=== PATIENT | male | born 1995 | race African-American/Black ===

== ENCOUNTER 2024-09-29 17:44 | Emergency (ER) | payer BC, SELFPAY ==
[2024-09-29 17:47] VITALS: BP 130/83; PULSE 70; RESP 18; TEMP 36.6; O2SAT 100
--- NOTE | 2024-09-29 19:56 | PC.NURSE ---
called x 2 no answer
== END 2024-09-29 20:05 | disposition left against medical advice (07) ==
LOC: ANHED 20:04
PROVIDERS: PCP Family Medicine
DX: R20.0 Anesthesia of skin (principal)
CPT/HCPCS: 99199

== ENCOUNTER 2024-10-01 08:08 | Outpatient (CLI) | payer BC, SELFPAY ==
--- NOTE | 2024-10-01 08:22 | ECG_ITS ---
Test Date: 2024-10-01 08:33:38 Measurements Intervals [place] Rate: 60 P: 55 [place]: 169 QRS: 44 QRSD: 87 T: 12 QT: 386 QTc: 386 Interpretive Statements SINUS RHYTHM BORDERLINE ST-T WAVE ABNORMALITY- INFERIOR LEADS BASELINE ARTIFACT- II, III, AVF BORDERLINE ECG No previous ECG available for comparison Electronically Signed On 10-01-2024 08:35:53 CDT by Luis Angel Edward D.O.
== END 2024-10-01 08:09 | disposition home or self-care (01) ==
PROVIDERS: PCP Family Medicine; Visit Provider Physician Assistant Medical
DX: R07.9 Chest pain, unspecified (principal)
CPT/HCPCS: 93005

== ENCOUNTER 2024-10-03 22:16 | Emergency (ER) | payer BC, SELFPAY ==
--- NOTE | ~2024-10-03 | XR_ITS ---
Clinical Indication: Weakness, chest pain PA and lateral views of the chest: Comparison: None Findings: The lungs are clear, without evidence of focal consolidation or pleural effusion. Cardiome diastinal silhouette is within normal limits. Bones and soft tissues are unremarkable. Impression: Normal chest. Reviewed, dictated and finalized at [facility]. T INTERPRETER Impression: Normal chest.
--- NOTE | ~2024-10-03 | CT_ITS ---
Noncontrast CT scan of the cervical spine Technique: Multiple contiguous axial [address] images of the cervical spine were obtained and rec onstructed in 2D sagittal and coronal planes on the acquisition scanner. Dose reduction technique was used on this scan by utilizing automated exposure control, adjustment of the mA and/or kV according to patient size. The dose-length product (DLP) was 415.75 mGy-cm. Clinical History: Left upper extremity paresthesia Findings: No fractures or dislocations. Unremarkable visualized bony structures. The intervertebral disc spaces are preserved. No prevertebral soft tissue swelling. Impression: No fracture or subluxation of the cervical spine. No significant abnormality seen. Reviewed, dictated and finalized at location . MENTATION ANALYST Impression: No fracture or subluxation of the cervical spine. No significant abnormality se en.
--- NOTE | ~2024-10-03 | CT_ITS ---
Non-contrast Head CT History: Left upper axillary paresthesia Technique: Axial non-contrast imaging of the brain was performed. Dose reduction technique was used on this scan by utilizing automated exposure control and iterative reconstruction technique. The dose -length product (DLP) was 681.00 mGy-cm. Findings: There is no evidence of intracranial hemorrhage, mass lesion, or acute infarct. Brain par enchyma appears normal. The ventricles and subarachnoid spaces are normal in size. The calvarium ap pears normal. The visualized paranasal sinuses and mastoid air cells are clear. Impression: No significant abnormality seen. Reviewed, dictated and finalized at location . PROCESSOR Impression: No significant abnormality seen.
[2024-10-03 22:18] VITALS: BP 154/90; PULSE 95; RESP 20; TEMP 36; O2SAT 99
--- NOTE | 2024-10-03 22:22 | ECG_ITS ---
Test Date: 2024-10-03 22:25:16 Measurements Intervals [place] Rate: 84 P: 50 [place]: 152 QRS: 22 QRSD: 96 T: 2 QT: 338 QTc: 400 Interpretive Statements SINUS RHYTHM POSSIBLE LEFT ATRIAL ENLARGEMENT NONSPECIFIC ST-T WAVE ABNORMALITY- INFERIOR LEADS BASELINE ARTIFACT- I, III, AVL, V6 BORDERLINE ECG Compared to ECG 10/01/2024 08:33:38 NO SIGNIFICANT CHANGE Electronically Signed On 10-04-2024 05:50:37 WHIZZER HAND by Luis Angel Edward D.O.
[2024-10-03 23:04] LABS: Basophils Percent Auto 0.4 % (0.2-1.2); Eosinophils Absolute Auto 0.2 K/mm3 (0-0.3); Eosinophils Percent Auto 4.8 % (0-4.4); Hematocrit 38.4 % (42.0-52.0); Hemoglobin 13.3 g/dL (14.0-18.0); Immature Granulocyte Absolute 0.01 K/mm3 (0.00-0.031); Immature Granulocyte Percent A 0.2 % (0-0.5); Lymphocytes Absolute Auto 2.63 K/mm3 (0.9-3.2); Lymphocytes Percent Auto 52.8 % (18.3-44.2); Mean Corpuscular HGB Conc 34.6 g/dl (32-36); Mean Corpuscular Hemoglobin 29.8 pg (26-34); Mean Corpuscular Volume 85.9 fl (80-100); Mean Platelet Volume 10.7 fl (7.4-10.4); Monocytes Absolute Auto 0.3 K/mm3 (0.1-0.6); Monocytes Percent Auto 6.8 % (2.6-8.5); Neutrophils Absolute Auto 1.7 K/mm3 (1.3-6.7); Platelet Count Result 164 k/mm3 (150-375); Red Blood Count 4.47 M/mm3 (4.6-6.20); Red Cell Distribution Width 12.4 % (11.5-14.5)
[2024-10-03 23:16] LABS: Alanine Aminotransferase 29 U/L (6-50); Albumin Level 4.2 g/dL (3.5-5.1); Alkaline Phosphatase 47 U/L (38-126); Anion Gap 11 mmol/L (4-12); Aspartate Amino Transferase 33 U/L (17-59); Bilirubin,Total 0.4 mg/dL (0.2-1.3); Blood Urea Nitrogen 18 mg/dL (9-20); Carbon Dioxide 25 mmol/L (22-30); Chloride 103 mmol/L (98-107); Estimated CRCL calculation 139 ml/min; Estimated Glomerular Filt Rate > 60; Glucose 117 mg/dL (65-110); Lipase 140 U/L (23-300); Potassium 3.6 mmol/L (3.4-5.0); Prothrombin Time 13.3 Seconds (11.1-14.7); Sodium 139 mmol/L (137-145)
[2024-10-03 23:17] LABS: Partial Thromboplastin Time 26.8 Seconds (22.3-36.8)
[2024-10-03 23:28] LABS: Troponin I < 0.012 ng/mL (0.000-0.034)
[2024-10-04 01:54] VITALS: PULSE 77; O2SAT 100
[2024-10-04 01:55] VITALS: BP 143/85; PULSE 74; RESP 18; O2SAT 100
--- NOTE | 2024-10-04 02:30 | ECG_ITS ---
Test Date: 2024-10-04 02:43:12 Measurements Intervals [place] Rate: 61 P: 58 [place]: 169 QRS: 39 QRSD: 86 T: 25 QT: 391 QTc: 394 Interpretive Statements SINUS RHYTHM WITH SINUS ARRHYTHMIA BASELINE WANDER- V4-V6 NORMAL ECG Compared to ECG 10/03/2024 22:25:16 No significant changes Electronically Signed On 10-04-2024 05:55:50 GROUNDSKEEPING YARDMAN by Luis Angel Edward D.O.
--- NOTE | 2024-10-04 03:12 | ED.GENADULT ---
HPI - General Adult General Chief complaint: Weakness Stated complaint: Weakness, left arm numbness 09/29/24 Time Seen by Provider: 10/04/24 01:51 History of Present Illness HPI narrative: patient is a 29-year-old gentleman who presents emergency department with chief complaint of left shoulder and arm numbness. The patient reports that he has been having some discomfort in his left shoulder area also reports that he has had numbness in his left arm the patient states that it has been intermittent been ongoing since Friday. The patient reports that it is worse when he puts his arm in specific positions reports that he has no decreased credit processor strength denies trauma Related Data Home Medications Medication Instructions Recorded Confirmed No Home Medications 09/11/22 09/17/24 Allergies Allergy/AdvReac Type Severity Reaction Status Date / Time No Known Allergies Allergy Verified 09/17/24 11:04 Review of Systems Review of Systems: A 10 system review of systems was completed on the patient and is negative except for what is stated in the HPI. Nursing and ancillary documentation was reviewed. [facility] Past Medical History Medical History Hypertension Surgical History Surgical History Hx of wisdom tooth extraction Family History Family History Grandparent Asthma Diabetes mellitus Hypertension Cerebrovascular accident Breast cancer Other Asthma Other Asthma Mother Breast cancer Migraine Father Hypertension CHF (congestive heart failure) Social History Social History Smoking status: Never smoker Second hand tobacco smoke exposure: No Alcohol intake: current Drinks per week: 2 Substance use: never Substance use type: does not use Lack of Transportation: No Lack of Food: Never True Current Housing: I Have Housing Concerned About Future Housing: No Difficulty Paying Gas/Electric Bills: No Difficulty Paying for Meds: No Currently Unemployed: No Education: Bachelor's Degree Difficulty w/ Childcare or Family Care: No Gender identity (if verbalized by the patient): Male Sexual Orientation (if Verbalized by the Patient): Straight or Heterosexual Spiritual care concerns: No Agree to blood products: Yes Exam Narrative: GENERAL: Well-appearing, well-nourished, and in no acute distress. HEAD: Normocephalic, atraumatic. EYES: PERRLA and EOMI. ENT: Nares clear, no rhinorrhea or epistaxis. Mucous membranes moist. NECK: Supple. tenderness to palpation paraspinous muscles left side of the neck CHEST: Clear to auscultation. No respiratory distress. HEART: Regular rate and rhythm. No murmur heard. Normal peripheral pulses. ABDOMEN: Soft, nontender, nondistended, normal active bowel sounds. EXTREMITIES: Normal range of motion. No edema. SKIN: Warm, dry, no rash. NEURO: No focal deficits. Alert and oriented x3. PSYCH: Normal mood and affect. Course Vital Signs Vital signs: Vital Signs Temperature 36.0 C L 10/03/24 22:18 Pulse Rate 95 10/03/24 22:18 Respiratory Rate 20 10/03/24 22:18 Blood Pressure 154/90 H 10/03/24 22:18 Pulse Oximetry 99 10/03/24 22:18 Oxygen Delivery Room Air 10/03/24 22:18 Temperature 36.0 C L 10/03/24 22:18 Pulse Rate 74 10/04/24 01:55 Respiratory Rate 18 10/04/24 01:55 Blood Pressure 143/85 H 10/04/24 01:55 Pulse Oximetry 100 10/04/24 01:55 Oxygen Delivery Room Air 10/04/24 01:54 Medical Decision Making MDM Narrative Medical decision making narrative: differential diagnosis includes shoulder strain, cervical radiculopathy, ACS, atypical chest pain EKG showed no acute ischemic changes initial and repeat troponin were negative CT head showed no evidence of acute abnormality CT cervical spine showed no evidence of acute abnormality Vital Signs Vital Signs: Vital Signs Temperature 36.0 C L 10/03/24 22:18 Pulse Rate 95 10/03/24 22:18 Respiratory Rate 20 10/03/24 22:18 Blood Pressure 154/90 H 10/03/24 22:18 Pulse Oximetry 99 10/03/24 22:18 Oxygen Delivery Room Air 10/03/24 22:18 Temperature 36.0 C L 10/03/24 22:18 Pulse Rate 74 10/04/24 01:55 Respiratory Rate 18 10/04/24 01:55 Blood Pressure 143/85 H 10/04/24 01:55 Pulse Oximetry 100 10/04/24 01:55 Oxygen Delivery Room Air 10/04/24 01:54 Lab Data 10/03/24 22:57 10/03/24 22:57 Labs: Lab Results 10/03/24 10/04/24 Range/Units 22:57 02:47 WBC 5.0 (4.5-10.0) K/mm3 RBC 4.47 L (4.6-6.20) M/mm3 Hgb 13.3 L (14.0-18.0) g/dL Hct 38.4 L (42.0-52.0) % MCV 85.9 (80-100) fl MCH 29.8 (26-34) pg MCHC 34.6 (32-36) g/dl RDW 12.4 (11.5-14.5) % Plt Count 164 (150-375) k/mm3 MPV 10.7 H (7.4-10.4) fl Immature Gran % (Auto) 0.2 (0-0.5) % Neut % (Auto) 35.0 L (45.5-73.1) % Lymph % (Auto) 52.8 H (18.3-44.2) % [place] % (Auto) 6.8 (2.6-8.5) % Eos % (Auto) 4.8 H (0-4.4) % Baso % (Auto) 0.4 (0.2-1.2) % Lymph # (Auto) 2.63 (0.9-3.2) K/mm3 [place] # (Auto) 0.3 (0.1-0.6) K/mm3 Eos # (Auto) 0.2 (0-0.3) K/mm3 Baso # (Auto) 0.0 (0.0-0.1) K/mm3 Abs Immat Gran (auto) 0.01 (0.00-0.031) K/mm3 Absolute Neuts (auto) 1.7 (1.3-6.7) K/mm3 Absolute Nucleated RBC 0.000 (0.0-0.012) K/mm3 Nucleated RBC % 0.0 (0.0-0.2) % PT 13.3 (11.1-14.7) Seconds INR 1.0 APTT 26.8 (22.3-36.8) Seconds Sodium 139 (137-145) mmol/L Potassium 3.6 (3.4-5.0) mmol/L Chloride 103 (98-107) mmol/L Carbon Dioxide 25 (22-30) mmol/L Anion Gap 11 (4-12) mmol/L BUN 18 (9-20) mg/dL Creatinine 0.90 (0.7-1.3) mg/dL Estim Creat Clear Calc 139 ml/min Estimated GFR > 60 (59 - ) Glucose 117 H (65-110) mg/dL Calcium 9.0 (8.4-10.2) mg/dL Total Bilirubin 0.4 (0.2-1.3) mg/dL AST 33 (17-59) U/L ALT 29 (6-50) U/L Alkaline Phosphatase 47 (38-126) U/L Troponin I < 0.012 < 0.012 (0.000-0.034) ng/mL Total Protein 8.0 (6.3-8.2) g/dL Albumin 4.2 (3.5-5.1) g/dL Lipase 140 (23-300) U/L Discharge Plan Discharge Clinical Impression: Acute pain of left shoulder, Atypical chest pain Patient Disposition: Home, Self-Care Condition: Stable Instructions: Antibiotic Form, Chest Pain (ED), Shoulder Pain (ED) Prescriptions: No Action No Home Medications Follow-up/Referrals: Maria Guadalupe Chiang MD [Primary Care Provider] - Time of Disposition: 03:32
[2024-10-04 03:17] LABS: Troponin I < 0.012 ng/mL (0.000-0.034)
== END 2024-10-04 03:46 | disposition home or self-care (01) ==
PROVIDERS: Emergency Provider Emergency Medicine; PCP Family Medicine
DX: M25.512 Pain in left shoulder (principal); R07.89 Other chest pain; I10 Essential (primary) hypertension; R94.31 Abnormal electrocardiogram [ECG] [EKG]
CPT/HCPCS: 36415; 70450; 71046; 72125; 80053; 83690; 84484; 85025; 85610; 85730; 93005; 99284

== ENCOUNTER 2024-11-26 09:45 | Outpatient (CLI) | payer BC, SELFPAY ==
--- NOTE | ~2024-11-26 | XR_ITS ---
EXAMINATION: XR shoulder LT min 2V DATE: 11/26/2024 09:57 INDICATION: Superior left shoulder pain post lifting injury a few months prior TECHNIQUE: AP internally and externally rotated, AP oblique externally rotated and transscapular Y vi ews of the left shoulder were obtained. COMPARISON: None FINDINGS: Normal alignment. No fracture. Glenohumeral joint is normal. Acromioclavicular joint is normal. Soft tissues are unremarkable. Visualized portions of the lungs are clear. IMPRESSION: Normal left shoulder radiographs. Reviewed, dictated and finalized at location B. ER GLAZIER
== END 2024-11-26 09:46 | disposition home or self-care (01) ==
PROVIDERS: PCP Family Medicine; Visit Provider Student in an Organized Health Care Education/Training Program
DX: M25.512 Pain in left shoulder (principal)
CPT/HCPCS: 73030

== ENCOUNTER 2025-01-17 10:34 | Emergency (ER) | payer BC, SELFPAY ==
--- NOTE | ~2025-01-17 | XR_ITS ---
EXAMINATION: XR chest 2V DATE: 01/17/2025 10:58 INDICATION: Cough. Chest tightness. Left arm pain. TECHNIQUE: Frontal and lateral views of the chest were obtained. COMPARISON: Chest 2 views 10/03/2024 FINDINGS: There is no pneumonia, pleural effusion, or pneumothorax. The heart size is normal. IMPRESSION: 1. No acute cardiopulmonary disease. Reviewed, dictated and finalized at location A. [facility]
--- NOTE | 2025-01-17 10:36 | ED.URI ---
HPI - URI/Sore Throat General Chief Complaint: Upper Respiratory Infection Stated Complaint: Cough Time Seen by Provider: 01/17/25 10:35 Source: patient Mode of arrival: ambulatory Limitations: no limitations History of Present Illness HPI Narrative: Peter is a 29-year-old male patient presenting to the clinic today with complaints of a cough, chest tightness, and left arm pain. He reports cough is been going on for several weeks is he thought he may have had COVID or influenza a couple weeks ago. He does bring up some green phlegm at times. States that Ko's cough and he has noticed chest tightness and some pain with taking deep breaths. He also reports that he has got some left arm pain. States that he thinks that the pain is due to a pinched nerve. Has had a EKG done a couple weeks ago and it came back normal. No fevers, chills, body aches. MD elicited complaint: cough and other (Chest tightness and left arm pain) Related Data Allergies Allergy/AdvReac Type Severity Reaction Status Date / Time No Known Allergies Allergy Verified 01/17/25 10:35 Review of Systems Review of Systems: Pertinent positives per HPI. Patient denies any fever, chills, rash, headache, visual changes, dizziness, palpitations, nausea, vomiting, diarrhea, constipation, abdominal pain, or any urinary issues. FOR[facility]LY [facility], [facility] Past Medical History Medical History Hypertension Surgical History Surgical History Hx of wisdom tooth extraction Family History Family History Grandparent Asthma Diabetes mellitus Hypertension Cerebrovascular accident Breast cancer Other Asthma Other Asthma Mother Breast cancer Migraine Father Hypertension CHF (congestive heart failure) Social History Social History Smoking status: Never smoker Second hand tobacco smoke exposure: No Alcohol intake: current Drinks per week: 2 Substance use: never Substance use type: does not use Lack of Transportation: No Lack of Food: Never True Current Housing: I Have Housing Concerned About Future Housing: No Difficulty Paying Gas/Electric Bills: No Difficulty Paying for Meds: No Currently Unemployed: No Education: Bachelor's Degree Difficulty w/ Childcare or Family Care: No Gender identity (if verbalized by the patient): Male Sexual Orientation (if Verbalized by the Patient): Straight or Heterosexual Spiritual care concerns: No Agree to blood products: Yes Comments At the time of my signature, I reviewed and agree with the nursing past medical, surgical, social, and family history. There is no relevant family history pertinent to the patient complaint. Exam Narrative: General: Well-developed, well nourished, in no apparent distress Head: Normocephalic, atraumatic Eyes: Pupils equally round and reactive to light bilaterally, EOM intact, sclera and conjunctive clear, no discharge, lids normal Ears: TMs intact and clear, ear canals clear, no drainage, grossly hearing normal. Nose: Nares patent, clear nasal discharge, no inflammation, no sinus tenderness. Mouth: Oral pharynx without lesions or masses, good dentition, MMM. Neck: Supple, trachea midline, no enlargement of anterior or posterior cervical nodes, no thyroid masses or goiter palpable. Cardio: Regular rate and rhythm, s1 and s2 normal, no murmur appreciated. Resp: Clear to auscultation bilaterally, no rhonchi, rales, wheezing or rubs Course Course Emergency Course: Portions of this record may have been created with voice recognition software. Level of Care: Express Care Visit Vital Signs Vital signs: Vital Signs Temperature 36.4 C L 01/17/25 10:39 Pulse Rate 76 01/17/25 10:39 Respiratory Rate 18 01/17/25 10:39 Blood Pressure 132/87 01/17/25 10:39 Pulse Oximetry 100 01/17/25 10:39 Oxygen Delivery Room Air 01/17/25 10:39 Temperature 36.4 C L 01/17/25 10:39 Pulse Rate 76 01/17/25 10:39 Respiratory Rate 18 01/17/25 10:39 Blood Pressure 132/87 01/17/25 10:39 Pulse Oximetry 100 01/17/25 10:39 Oxygen Delivery Room Air 01/17/25 10:39 Vital signs reviewed MDM - URI/Sore Throat MDM Narrative Medical decision making narrative: At the time of visit patient is resting comfortably on the exam table. Patient appears to be nontoxic. EKG: EKG shows sinus rhythm with a nonspecific T-wave abnormality. Heart rate is 77 beats per minute. No ST elevation or depression noted. When compared to old EKG no acute changes Diagnostics: Chest x-ray is negative for any acute cardiopulmonary process. Plan: Suspect patient has post viral cough syndrome. Prescription for prednisone, albuterol, Tessalon Perles was sent to the pharmacy. Supportive measures were discussed with the patient and they voiced understanding discharge instructions and agrees to treatment plan. Return precautions reviewed Differential Diagnosis Differential diagnosis: Likely upper respiratory infection, otitis media, sinusitis, viral infection, bronchitis, influenza, pharyngitis and other (COVID) Imaging Data Radiologist's impression: ITS Impressions Chest X-Ray 01/17/25 11:01 IMPRESSION: 1. No acute cardiopulmonary disease. ECG Data EKG #1: Attestation: I personally reviewed and interpreted this ECG as follows: ECG completion date: 01/17/25 ECG completion time: 10:50 Prior ECG tracings: available for review Interpretation: EKG shows sinus rhythm with a nonspecific T-wave abnormality. Compared to old EKGs these are similar. No ST elevation or depression noted. ND interval is 160 milliseconds, QRS durations 86 milliseconds, QT-QTC is 3 in 65-397 milliseconds, P-R-T axis is 51 44 9 Discharge Plan Discharge Clinical Impression: Post-viral cough syndrome Patient Disposition: Home, Self-Care Condition: Stable Instructions: Antibiotic Form, Acute Cough (ED) Additional Instructions: EKG shows sinus rhythm with heart rate of 77 beats per minute Chest x-rays negative for any acute cardiopulmonary process. Take prescription medications only as prescribed-albuterol inhaler, Tessalon Perles, and prednisone Increase fluids and stay well hydrated Tylenol/motrin for pain/fever Flonase and OTC antihistamines as directed Vicks vapor rub to open sinuses Sinus rinses for congestion Cepacol spray, cough drops, throat lozenges, warm tea with honey/lemon, gargle salt water to soothe throat BRAT diet for diarrhea Clear liquids x 24 hours then advance as tolerated for nausea/vomiting Go to the ED if you develop a worsening in your condition- high fever not controlled by Tylenol or Motrin, dehydration, weakness, lethargy, shortness of breath, or chest pain. Follow up with your PCP in 3-5 days if symptoms persist. Patient Language: Citizen Of [place] Prescriptions: New benzonatate 200 mg capsule 200 mg PO TID 7 Days Qty: 21 0RF prednisone 20 mg tablet 40 mg PO DAILY 5 Days Qty: 10 0RF albuterol sulfate 90 mcg/actuation HFA aerosol inhaler 2 puff inhalation Q4-6H PRN (Reason: shortness of breath or wheezing) 30 Days Qty: 8.5 0RF Follow-up/Referrals: PHYSICIAN,IMPREGNATOR [Primary Care Provider] - Time of Disposition: 11:05 Quality NIHSS Nursing Documentation ED NIHSS nursing documentation: reviewed/agree
[2025-01-17 10:39] VITALS: BP 132/87; PULSE 76; RESP 18; TEMP 36.4; O2SAT 100
--- NOTE | 2025-01-17 10:42 | ECG_ITS ---
Test Date: 2025-01-17 10:50:29 Measurements Intervals [place] Rate: 77 P: 51 RI: 160 QRS: 44 QRSD: 86 T: 9 QT: 365 QTc: 414 Interpretive Statements SINUS RHYTHM NONSPECIFIC ST-T WAVE ABNORMALITY- INFERIOR LEADS BORDERLINE ECG Compared to ECG 10/04/2024 02:43:12 NO SIGNIFICANT CHANGE Electronically Signed On 01-17-2025 13:06:38 STALLION MANAGER by Luis Angel Edward D.O.
== END 2025-01-17 11:08 | disposition home or self-care (01) ==
PROVIDERS: Emergency Provider Nurse Practitioner Family
DX: R05.8 Other specified cough (principal); I10 Essential (primary) hypertension
CPT/HCPCS: 71046; 93005; 99213; G0463

== ENCOUNTER 2025-01-26 09:18 | Outpatient (CLI) | payer BC, SELFPAY ==
--- NOTE | ~2025-01-26 | US_ITS ---
EXAMINATION: US venous doppler LE RT DATE: 01/26/2025 09:44 INDICATION: Right lower limb pain and swelling TECHNIQUE: Grayscale ultrasound images without and with compression and Doppler ultrasound images of the right lower extremity veins were obtained. COMPARISON: None. FINDINGS: The visualized portions of right common femoral vein, profunda (deep) femoral vein, femoral vein, pop liteal vein, posterior tibial veins, peroneal veins, gastrocnemius vein and greater saphenous vein ou tflow are patent. IMPRESSION: 1. No deep venous thrombosis in the right lower limb. Reviewed, dictated and finalized at location B. OR ENVIRONMENTAL SCIENTIST
== END 2025-01-26 09:19 | disposition home or self-care (01) ==
LOC: MICIMG 09:19
PROVIDERS: PCP Family Medicine; Visit Provider Family Medicine
DX: M79.89 Other specified soft tissue disorders (principal)
CPT/HCPCS: 93971

== ENCOUNTER 2025-04-18 10:23 | Outpatient (CLI) | payer BC, MEDICAID, SELFPAY ==
--- NOTE | 2025-04-18 10:52 | EST_ITS ---
Patient Info Name: Peter Krueger Age: 29 years : 1995 Gender: Male Ht: 73 in Wt: 218 lbs BSA: 2.28 m2 Exam Date: 04/18/2025 10:52 AM Patient Status: O Admit Date: 04/18/2025 Exam Type: CA stress test treadmill A treadmill exercise stress test was performed. Staff Attending Provider: Luis Angel Edward DO Exercise Physician: Luis Angel Edward DO Summary 1. 1. Negative Eren exercise stress test for ischemic ST changes by ECG criteria. 2. 2. Good functional capacity, achieving 14.9 METs of workload. 3. 3. Appropriate HR response to exercise. 4. 4. Appropriate HR recovery at 1 minute post exercise. 5. 5. No imaging with stress testing. 6. 6. Patient informed of the above results. Protocol: Eren Stress ECG Details Stage: REST Duration (min): 7 min : 14 sec Speed (mph): 0.0 Grade (%): 0 HR (bpm): 72 SBP (mmHg): 133 DBP (mmHg): 85 METS: --- Stage: REST Duration (min): 12 min : 17 sec Speed (mph): 0.0 Grade (%): 0 HR (bpm): 72 SBP (mmHg): 133 DBP (mmHg): 85 METS: --- Stage: STAGE 1 Duration (min): 1 min : 0 sec Speed (mph): 1.7 Grade (%): 10 HR (bpm): 98 SBP (mmHg): 133 DBP (mmHg): 85 METS: --- Stage: STAGE 1 Duration (min): 2 min : 0 sec Speed (mph): 1.7 Grade (%): 10 HR (bpm): 96 SBP (mmHg): 133 DBP (mmHg): 85 METS: --- Stage: STAGE 1 Duration (min): 3 min : 0 sec Speed (mph): 1.7 Grade (%): 10 HR (bpm): 103 SBP (mmHg): 157 DBP (mmHg): 60 METS: --- Stage: STAGE 2 Duration (min): 1 min : 0 sec Speed (mph): 2.5 Grade (%): 12 HR (bpm): 110 SBP (mmHg): 157 DBP (mmHg): 60 METS: --- Stage: STAGE 2 Duration (min): 2 min : 0 sec Speed (mph): 2.5 Grade (%): 12 HR (bpm): 109 SBP (mmHg): 166 DBP (mmHg): 66 METS: --- Stage: STAGE 2 Duration (min): 3 min : 0 sec Speed (mph): 2.5 Grade (%): 12 HR (bpm): 87 SBP (mmHg): 166 DBP (mmHg): 66 METS: --- Stage: STAGE 3 Duration (min): 1 min : 0 sec Speed (mph): 3.4 Grade (%): 14 HR (bpm): 110 SBP (mmHg): 171 DBP (mmHg): 90 METS: --- Stage: STAGE 3 Duration (min): 2 min : 0 sec Speed (mph): 3.4 Grade (%): 14 HR (bpm): --- SBP (mmHg): 171 DBP (mmHg): 90 METS: --- Stage: STAGE 3 Duration (min): 3 min : 0 sec Speed (mph): 3.4 Grade (%): 14 HR (bpm): 125 SBP (mmHg): 161 DBP (mmHg): 90 METS: --- Stage: STAGE 4 Duration (min): 1 min : 0 sec Speed (mph): 4.2 Grade (%): 16 HR (bpm): 104 SBP (mmHg): 161 DBP (mmHg): 90 METS: --- Stage: STAGE 4 Duration (min): 2 min : 0 sec Speed (mph): 4.2 Grade (%): 16 HR (bpm): 147 SBP (mmHg): 162 DBP (mmHg): 84 METS: --- Stage: STAGE 4 Duration (min): 3 min : 0 sec Speed (mph): 4.2 Grade (%): 16 HR (bpm): 157 SBP (mmHg): 162 DBP (mmHg): 84 METS: --- Stage: STAGE 5 Duration (min): 1 min : 0 sec Speed (mph): 5.0 Grade (%): 18 HR (bpm): 164 SBP (mmHg): 199 DBP (mmHg): 87 METS: --- Stage: STAGE 5 Duration (min): 2 min : 0 sec Speed (mph): 5.0 Grade (%): 18 HR (bpm): 169 SBP (mmHg): 199 DBP (mmHg): 87 METS: --- Stage: STAGE 5 Duration (min): 2 min : 0 sec Speed (mph): 5.0 Grade (%): 18 HR (bpm): 169 SBP (mmHg): 199 DBP (mmHg): 87 METS: --- Stage: RECOVERY Duration (min): 0 min : 59 sec Speed (mph): 0.0 Grade (%): 0 HR (bpm): 139 SBP (mmHg): 155 DBP (mmHg): 39 METS: --- Stage: RECOVERY Duration (min): 1 min : 59 sec Speed (mph): 0.0 Grade (%): 0 HR (bpm): 109 SBP (mmHg): 155 DBP (mmHg): 39 METS: --- Stage: RECOVERY Duration (min): 2 min : 59 sec Speed (mph): 0.0 Grade (%): 0 HR (bpm): 94 SBP (mmHg): 173 DBP (mmHg): 48 METS: --- Stage: RECOVERY Duration (min): 3 min : 59 sec Speed (mph): 0.0 Grade (%): 0 HR (bpm): 95 SBP (mmHg): 154 DBP (mmHg): 56 METS: --- Stage: RECOVERY Duration (min): 4 min : 17 sec Speed (mph): 0.0 Grade (%): 0 HR (bpm): 86 SBP (mmHg): 154 DBP (mmHg): 56 METS: --- Rest HR: 72 bpm Peak HR: 170 bpm Rest Sys BP: 133 mmHg Peak Sys BP: 199 mmHg Max Pred HR: 192 bpm % Max Pred HR: 89 % Target HR: 163 bpm Max RPP: 33,830 bpm*mmHg Benavidez Score: -14 Termination Reason: Reached target heart rate or workload Cardiac Symptoms: Shortness of breath Max ST Seg Deviation: -5.50 mm Total Time: 14 min : 0 sec Rest Lau BP: 85 mmHg Peak Lau BP: 87 mmHg Angina Score: None Total METS: 14.9 Resting ECG Sinus rhythm. Stress ECG No ST changes. Arrhythmias None. Report Signatures
--- OUTSIDE RECORDS SUMMARY | 2025-04-18 10:59 | XMS_ITS | Encounter Summary ---
Author Organization [facility] Address [address] [place] [address] Care Team Providers Care Estate Planning Counselor Name Role Phone Medardo Zapata MD Primary Care Provider [phone] Encounter Details Date Type Department Care Team (Late st Contact Info) Description 02/06/2005 Outpatient Historical [facility] [address] [facility] [address] [facility] [address] [address] Sourav Argueta MD NO ADDRESS ON FILE Social History Tobacco Use Types Packs/Day Years Used Date Smoking Tobacco: Never Assessed Sex and Gender Information Value Date Recorded Sex Assigned at Not on file 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
--- OUTSIDE RECORDS SUMMARY | 2025-04-18 10:59 | XMS_ITS | Encounter Summary ---
Author Organization [facility] Address [address] [place] [address] Care Team Providers Care Corporate Director Talent Assessment Name Role Phone Medardo Zapata MD Primary Care Provider [phone] Encounter Details Date Type Department Care Team (Late st Contact Info) Description 07/29/2007 Outpatient Historical [facility] [address] [facility] [address] [facility] [address] [address] Sourav Argueta MD NO ADDRESS ON FILE Social History Tobacco Use Types Packs/Day Years Used Date Smoking Tobacco: Never Assessed Sex and Gender Information Value Date Recorded Sex Assigned at Not on file 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
--- OUTSIDE RECORDS SUMMARY | 2025-04-18 10:59 | XMS_ITS | Encounter Summary ---
Author Organization [facility] Address [address] [place] [address] Care Team Providers Care Interrelated Special Education Teacher Name Role Phone Medardo Zapata MD Primary Care Provider [phone] Encounter Details Date Type Department Care Team (Late st Contact Info) Description 10/23/2004 Outpatient Historical [facility] [address] [facility] [address] [facility] [address] [address] Sourav Argueta MD NO ADDRESS ON FILE Social History Tobacco Use Types Packs/Day Years Used Date Smoking Tobacco: Never Assessed Sex and Gender Information Value Date Recorded Sex Assigned at Not on file 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
--- OUTSIDE RECORDS SUMMARY | 2025-04-18 10:59 | XMS_ITS | Encounter Summary ---
Author Organization [facility] Address [address] [place] [address] Care Team Providers Care Shirt Bander Name Role Phone Medardo Zapata MD Primary Care Provider [phone] Encounter Details Date Type Department Care Team (Late st Contact Info) Description 12/05/2007 Outpatient Historical [facility] [address] [facility] [address] [facility] [address] [address] Sourav Argueta MD NO ADDRESS ON FILE Social History Tobacco Use Types Packs/Day Years Used Date Smoking Tobacco: Never Assessed Sex and Gender Information Value Date Recorded Sex Assigned at Not on file 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
--- OUTSIDE RECORDS SUMMARY | 2025-04-18 10:59 | XMS_ITS | Encounter Summary ---
Author Organization [facility] Address [address] [place] [address] Care Team Providers Care Vessel Manager Name Role Phone Medardo Zapata MD Primary Care Provider [phone] Encounter Details Date Type Department Care Team (Late st Contact Info) Description 07/06/2004 Outpatient Historical [facility] [address] [facility] [address] [facility] [address] [address] Sourav Argueta MD NO ADDRESS ON FILE Social History Tobacco Use Types Packs/Day Years Used Date Smoking Tobacco: Never Assessed Sex and Gender Information Value Date Recorded Sex Assigned at Not on file 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
--- OUTSIDE RECORDS SUMMARY | 2025-04-18 10:59 | XMS_ITS | Encounter Summary ---
Author Organization [facility] Address [address] [place] [address] Care Team Providers Care Making Machine Catcher Name Role Phone Medardo Zapata MD Primary Care Provider [phone] Encounter Details Date Type Department Care Team (Late st Contact Info) Description 10/30/2004 Outpatient Historical [facility] [address] [facility] [address] [facility] [address] [address] Sourav Argueta MD NO ADDRESS ON FILE Social History Tobacco Use Types Packs/Day Years Used Date Smoking Tobacco: Never Assessed Sex and Gender Information Value Date Recorded Sex Assigned at Not on file 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
--- OUTSIDE RECORDS SUMMARY | 2025-04-18 10:59 | XMS_ITS | Encounter Summary ---
Author Organization [facility] Address [address] [place] [address] Care Team Providers Care Twill Cutter Name Role Phone Medardo Zapata MD Primary Care Provider [phone] Encounter Details Date Type Department Care Team (Late st Contact Info) Description 09/18/2007 Outpatient Historical [facility] [address] [facility] [address] 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
--- OUTSIDE RECORDS SUMMARY | 2025-04-18 11:00 | XMS_ITS | Encounter Summary ---
Author Organization [facility] Address [address] [place] [address] Care Team Providers Care Case Picker Name Role Phone Medardo Zapata MD Primary Care Provider [phone] Encounter Details Date Type Department Care Team (Late st Contact Info) Description 05/20/[address] 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
--- OUTSIDE RECORDS SUMMARY | 2025-04-18 11:00 | XMS_ITS | Encounter Summary ---
Author Organization [facility] Address [address] [place] [address] Care Team Providers Care Vision Teacher Name Role Phone Medardo Zapata MD Primary Care Provider [phone] Encounter Details Date Type Department Care Team (Late st Contact Info) Description 12/18/2001 Outpatient Historical [facility] [address] [facility] [address] [facility] [address] [address] Sourav Argueta MD NO ADDRESS ON FILE Social History Tobacco Use Types Packs/Day Years Used Date Smoking Tobacco: Never Assessed Sex and Gender Information Value Date Recorded Sex Assigned at Not on file 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
--- OUTSIDE RECORDS SUMMARY | 2025-04-18 11:00 | XMS_ITS | Encounter Summary ---
Author Organization [facility] Address [address] [place] [address] Care Team Providers Care Warehouse Manager Name Role Phone Medardo Zapata MD Primary Care Provider [phone] Encounter Details Date Type Department Care Team (Late st Contact Info) Description 08/12/2003 Outpatient Historical [facility] [address] [facility] [address] [facility] [address] [address] Sourav Argueta MD NO ADDRESS ON FILE Social History Tobacco Use Types Packs/Day Years Used Date Smoking Tobacco: Never Assessed Sex and Gender Information Value Date Recorded Sex Assigned at Not on file 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
--- OUTSIDE RECORDS SUMMARY | 2025-04-18 11:00 | XMS_ITS | Continuity of Care Document ---
Author Organization [facility] Address [id number] [place] [address] [address] [place] [address] Phone Care Team Providers Care Varnish Filterer Name Role Phone Haleigh COPE, Manoj Unavailable Unavaila ble Medications Medication Instructions Dosage Effective Dates (start - stop) Status Comments doxycycline hyclate 50 mg capsule take 1 capsule (50MG) by oral route every 12 hours 50 MG - Active Procedures Procedure Date OFFICE/OUTPATIENT VISIT, [facility] Advance Directives Directive Yes / No Effective Date File Name No Information Encounters Encounter Description Practice Location Reason(s) For Visit Diagnoses Date Provider Providers Copied on Encounter Ophthalmology [facility], [address] [place] [address] [address], [place], [place], [id number], tel:[phone] Oph Consult [facility] No Information 4 Haleigh Aranda. [address], [place], [place], [address], [place]. tel:[phone] Referring Provider: Manoj house, [address], [place], [address] . tel:[phone] OFFICE/OUTPA TIENT VISIT, [facility] Ophthalmology [facility], [address] [place] [address] [address], [place], [place], [address], [place] tel:[phone] Oph Consult [facility] Office Blepharitis, unspecifiedCha lazion 4 Haleigh Chavezl. [address], [place], [place], [address], [place]. tel:[phone] Referring Provider: Manoj house [address], [place], [address] . tel:[phone] Family History Family Member Type Diagnosis Age At Onset No Information Payers Payer name Insurance type Covered democrat ID Authorelena rivera(s) [facility] [id number] Social History Type Description Quantity Date Captured Comments Sex Male Smoking Status No Information Chief Complaint And Reason For Visit No Information Reason For Referral Reason For Referral No Information History Of Present Illness Encounter Date Complaint History Of Prese nt Illness No Information Functional Status Date Functional Assessmen t No Information Instructions Date Instruction Additional Infor samantha Blepharitis, unspeci fied OU - Discussed diagnosis in detail with patient. Discussed treatment options with patient. Lid scrubs and hygiene were explained. Patient instructed to apply warm compresses. Patient instructed to use artificial tears as needed. Educational materials provided:Blepharitis. Related to Blepharitis, unspecified Chalazion OS - L[place]SETT a nd LLL nodule - Discussed diagnosis in detail with patient. Discussed treatment options with patient. Patient instructed to apply warm compresses. Patient to start Doxy 50 mg PO BID for 10 days. Patient will call if no improvement and Ref to Dr. Oglesby for surgical intervention Related to Chalazion Assessments Type Assessment Date No Information Patient Care Teams Name Effective Dates (start - stop) Status Members No Information
--- OUTSIDE RECORDS SUMMARY | 2025-04-18 11:00 | XMS_ITS | Continuity of Care Document ---
Author Organization [facility] Address [address] [place] [address] Phone Care Team Providers Care Sweeping Compound Blender Name Role Phone Bunny Lomax MD Unavailable Unavailable Allergies, Adverse Reactions, Alerts Substance Reaction Status Criticality No Known Allergies Active No Inform ation Medications Medication Instructions Dosage Effective Dates (start - stop) Status Comments No Drug Therapy Prescribed Advance Directives Directive Yes / No Effective Date File Name No Information Encounters Encounter Description Practice Location Reason(s) For Visit Diagnoses Date Provider Providers Copied on Encounter [facility], [address], [place], [address], [place] tel:[phone] [facility] No Information 4 Dami Hollis. [address], [place], [address]. tel: [phone] [facility], [address], [place], [address], [place] tel:[phone] [facility] [place] Ankle sprain 4 Dami Hollis. [address], [place], [address]. tel: [phone] [facility], [address], [place], [address], [place] tel:[phone] [facility] [place] Foot sprainAnkle sprain 4 Bola Gomez. [address], [place], [place], [address] . tel: [phone] [facility], [address], [place], [address], tel:[phone] [facility] Radha Ankle sprainFoot sprain 4 Bola Hopkins [address], [place], [place], [address] . tel: [phone] Family History Family Member Type Diagnosis Age At Onset No Information Payers Payer name Insurance type Covered democrat ID Authoriza tion(s) No Information Social History Type Description Quantity Date Captured Comments Sex Male Smoking Status No Information Chief Complaint And Reason For Visit No Information Reason For Referral Reason For Referral No Information Plan Of Treatment Date Type Action Status Referral Ordered: RADEX FOOT 2 VIEWS RT ordered Referral Ordered: RADEX ANKLE COMPL MINIMUM 3 VIEWS RT ordered History Of Present Illness Encounter Date Complaint History Of Prese nt Illness No Information Functional Status Date Functional Assessmen t No Information Medications Administered Medication Instructions Dosage Effective Dates (start - stop) Status Comments No Drug Therapy Prescribed Instructions Date Instruction Additional Infor mation No Information Assessments Type Assessment Date No Information Patient Care Teams Name Effective Dates (start - stop) Status Members No Information
--- OUTSIDE RECORDS SUMMARY | 2025-04-18 11:00 | XMS_ITS | Encounter Summary ---
Author Organization [facility] Address [address] [place] [address] Care Team Providers Care Single Needle Operator Name Role Phone Medardo Zapata MD Primary Care Provider [phone] Encounter Details Date Type Department Care Team (Late st Contact Info) Description 03/05/2001 Outpatient Historical [facility]s [address] [facility] [address] [facility] [address] [address] Sourav Argueta MD NO ADDRESS ON FILE Social History Tobacco Use Types Packs/Day Years Used Date Smoking Tobacco: Never Assessed Sex and Gender Information Value Date Recorded Sex Assigned at Not on file 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
--- OUTSIDE RECORDS SUMMARY | 2025-04-18 11:00 | XMS_ITS | Encounter Summary ---
Author Organization [facility] Address [address] [place] [address] Care Team Providers Care Terminal Block Assembler Name Role Phone Medardo Zapata MD Primary Care Provider [phone] Encounter Details Date Type Department Care Team (Late st Contact Info) Description 04/29/2002 Outpatient Historical [facility] [address] [facility] [address] [facility] [address] [address] Sourav Argueta MD NO ADDRESS ON FILE Social History Tobacco Use Types Packs/Day Years Used Date Smoking Tobacco: Never Assessed Sex and Gender Information Value Date Recorded Sex Assigned at Not on file 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
--- OUTSIDE RECORDS SUMMARY | 2025-04-18 11:00 | XMS_ITS | Clinical Summary ---
Author Organization [facility] Address [address] [place] [address] Phone Care Team Providers Care Bin Operator Name Role Phone Maria Guadalupe Chiang MD Primary Care Provider [phone] Allergies No known active allergies Medications No known medications Active Problems No known active problems Social History Tobacco Use Types Packs/Day Years Used Date Smoking Tobacco: Never Assessed Sex and Gender Information Value Date Recorded Sex Assigned at Not on file Legal Sex Male 3:15 PM CDT Gender Identity Not on file Sexual Orientation Not on file Last Filed Vital Signs Vital Sign Reading Time Taken Comments Blood Pressure 145/95 06/12/2024 4:31 PM CDT Pulse 66 06/12/2024 4:31 PM CDT Temperature 36.8 C (98.3 F) 06/12/2024 3:26 PM CDT Respiratory Rate 13 06/12/2024 4:31 PM CDT Oxygen Saturation 100% 06/12/2024 4:31 PM CDT Inhaled Oxygen Concentration - - Weight 100.9 kg (222 lb 7.1 oz) 06/12/2024 3:26 PM CDT Height 185.4 cm (6' 1 ) 06/12/2024 3:26 PM CDT Body Mass Index 29.35 06/12/2024 3:26 PM CDT Plan of Treatment Health Maintenance Due Date Last Done Comments Hepatitis C Virus (HCV) Screening 1996 Influenza Immunization (#1) 2024 09/2 08/2023, 09/24/2022, 09/16/2021 SARS-COV-2 Immunization ( season) 2024 08/21/2021, 07/19/2021 Respiratory Syncytial Virus (RSV) Immunization (Adult) (1 - 1-dose 75+ series) 2071 Hepatitis B Immunization Completed 997, 01/16/1997, 1996 Meningococcal Immunization (ACWY) Completed 06/19/2015, 05/14/2011 TdaP Immunization Completed 03/09/2019, 04/18/2008 Pneumococcal Immunization Combined Aged Out No longer eligible b ased on patient's age to complete this topic Rotavirus Immunization Aged Out No lo nger eligible based on patient's age to complete this topic Insurance [place] [address] [place] [address] Care Teams Bin Operator Relationship Specialty Start Date End Date Maria Guadalupe Chiang MD [address] [place] [address] PCP - General Family Medicine 06/12/24
--- OUTSIDE RECORDS SUMMARY | 2025-04-18 11:00 | XMS_ITS | Encounter Summary ---
Author Organization [facility] Address [address] [place] [address] Care Team Providers Care Beater Room Supervisor Name Role Phone Medardo Zapata MD Primary Care Provider [phone] Encounter Details Date Type Department Care Team (Late st Contact Info) Description 09/03/2001 Outpatient Historical [facility] Pediatrics [address] [facility] [address] [facility] [address] [address] Sourav Argueta MD NO ADDRESS ON FILE Social History Tobacco Use Types Packs/Day Years Used Date Smoking Tobacco: Never Assessed Sex and Gender Information Value Date Recorded Sex Assigned at Not on file 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
--- OUTSIDE RECORDS SUMMARY | 2025-04-18 11:00 | XMS_ITS | Clinical Summary ---
Author Organization [facility] Address [address] [place] [address] Care Team Providers Care Area Field Manager Name Role Phone Unavailable Primary Care Provider Unavailabl e Source Comments [facility],non-owned Affiliates and Associated Physician Practices is amultiple site organization consisting of ambulatory clinics and hospital sitesin [place], [place], [place] and [place]. This disclosure is being madepursuant to the Care Everywhere program and may not contain all information available regarding this patient. Last updated 18.[facility] Siving Egil [place] Allergies No known active allergies Medications * Be aware that medications may not be up to date on this document. Alwaysverify current medications with the patient. No known medications Social History Tobacco Use Types Packs/Day Years Used Date Smoking Tobacco: Never Smokeless Tobacco: Never Alcohol Use Standard Drinks/Week Comments Yes 0 (1 standard drink = 0.6 oz pur e alcohol) Sex and Gender Information Value Date Recorded Sex Assigned at Not on file Legal Sex Male 6:16 PM RECRUITING ADMINISTRATOR Gender Identity Not on file Sexual Orientation Not on file Last Filed Vital Signs Vital Sign Reading Time Taken Comments Blood Pressure 122/70 08/03/2020 9:40 AM CDT Pulse 76 08/03/2020 9:40 AM CDT Temperature 36.8 C (98.3 F) 08/03/2020 9:40 AM CDT Respiratory Rate 16 08/03/2020 9:40 AM CDT Oxygen Saturation 98% 08/03/2020 9:40 AM CDT Inhaled Oxygen Concentration - - Weight 109.8 kg (242 lb) 08/03/2020 9:40 AM CDT Height 185.4 cm (6' 1 ) 08/03/2020 9:40 AM CDT Body Mass Index 31.93 08/03/2020 9:40 AM CDT Plan of Treatment Health Maintenance Due Date Last Done Comments HIV SCREENING 2011 HEPATITIS C SCREENING 09/25/2014 DTAP/TDAP/TD VACCINES (1 - Tdap) 2015 HEPATITIS B VACCINE (1 of 3 - 19+ 3-dose series) 2015 COVID-19 VACCINE (1 - 2023-2 5 season) 2024 DEPRESSION SCREENING 12/01/2024 INFLUENZA VACCINE (Season Ended) 2025 ZOSTER VACCINE (1 of 2) 2046 HIB VACCINE Aged Out No longer eligi ble based on patient's age to complete this topic HPV VACCINE Aged Out No longer eligi ble based on patient's age to complete this topic MENINGOCOCCAL (Group B) VACC INE SHARED DECISION-MAKING Aged Out No longer eligibl e based on patient's age to complete this topic MENINGOCOCCAL GROUPS A/C/Y/W VACCINE Aged Out No longer eligible b ased on patient's age to complete this topic PNEUMOCOCCAL VACCINE Aged Out No long er eligible based on patient's age to complete this topic
--- OUTSIDE RECORDS SUMMARY | 2025-04-18 11:00 | XMS_ITS | Clinical Summary ---
Author Organization [facility] Address [address] [place] [address] Care Team Providers Care Custodial Worker Name Role Phone Medardo Zapata MD Primary Care Provider [phone] Allergies No known active allergies Medications No known medications Active Problems Problem Noted Date Diagnosed Date Palpitations 10/23/2010 Family history of cardiovascular disease 010 Immunizations Immunization Administration Dates Next Due (ADACEL/BOOSTRIX)(10 YR UP) TDAP VACCINE, 0.5ML, IM 04/18/2008 (HAVRIX/VAQTA)(12 MO-18 YRS) HEPATITIS A VACCINE 0.5 ML PED/ADOL 2 DOSE, IM 05/08/2012 (INFANRIX)(6 WKS-6 YRS) DIPT HERIA, TETANUS TOXOIDS, AND ACCELLULAR PERTUSSIS VACCINE (DTAP), 0.5 ML IM 05/20/2002,01/21/1998,08/08/1997,03/25,01/16/1997 (IPOL)(6 WKS AND UP) POLIOVI EVER VACCINE, INACTIVATED (IPV), 3 DOSE, SUBCUT OR IM 05/20/2002,08/08/1997,03/25/1997,02/03 (M-M-R II/PRIORIX)(12 MO UP) MEASLES, MUMPS AND RUBELLA VIRUS VACCINE, 0.5 ML IM/SUBCUT 05/20/2002,10/15/1997 (PFIZER)(12 YR UP) COVID-19 VACCINE - EMERGENCY USE AUTHORIZATION, MRNA, [id number](PF) 30 MCG/0.3 ML IM SUSP 07/19/2021 (TDVAX)(7 YRS UP) TETANUS AN D DIPHTHERIA TOXOIDS, ADSORBED (2 LF OF TETANUS TOXOID AND 2 LF OF DIPHTHERIA TOXOID), 0.5ML (PF), IM 05/14/2011 (VARIVAX)(12 MOS UP)VARICELL A VIRUS VACCINE (PF) 0.5 ML, SUB CUT 06/22/2010,03/02/1998 HIB, Unspecified Formulation 01/21/1998, 08/08/1997,03/25/1997,01/16 Hepatitis A Vaccine 05/14/2011 Hepatitis B Vaccine 08/08/1997,01/16/1997,1995 Meningococcal ACWY Vaccine, Unspecified Formulation 05/14/2011 Social History Tobacco Use Types Packs/Day Years Used Date Smoking Tobacco: Never Smokeless Tobacco: Never Alcohol Use Standard Drinks/Week Comments Not Asked 0 (1 standard drink = 0.6 oz pur e alcohol) Sex and Gender Information Value Date Recorded Sex Assigned at Not on file 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 Gender Identity Not on file Sexual Orientation Not on file Last Filed Vital Signs Vital Sign Reading Time Taken Comments Blood Pressure 118/72 04/13/2014 3:53 PM CDT Pulse 80 04/13/2014 3:53 PM CDT Temperature 36.1 C (96.9 F) 04/13/2014 3:53 PM CDT Respiratory Rate 18 04/13/2014 3:53 PM CDT Oxygen Saturation - - Inhaled Oxygen Concentration - - Weight 82.1 kg (181 lb) 04/13/2014 3:53 PM CDT Height 180.3 cm (5' 11 ) 04/13/2014 3:53 PM CDT Body Mass Index 25.24 04/13/2014 3:53 PM CDT Plan of Treatment Health Maintenance Due Date Last Done Comments DTAP/TDAP/TD VACCINES (8 - Td or Tdap) 05/14/2021 05/14/2011, 04/18/2008, 05/20/2002, Additional history exists INFLUENZA VACCINE (#1) 2024 COVID-19 Vaccine (2 - season) 2024 07/19/2021 Preventative Visit- Commercial 12/01/2024 05/08/2012, 06/22/2010, 07/06/2004, Additional history exists HEPATITIS B VACCINES Completed 08/08/1997, 01/16/1997, 1996 HPV VACCINES Aged Out No longer eligi ble based on patient's age to complete this topic Insurance BCBS BLUE ACCESS/TRUE BLUE PPO BCBS BLUE ACCESS/TRUE BLUE PPO Care Teams Custodial Worker Relationship Specialty Start Date End Date Medardo Zapata MD PCP - General Pediatrics 04/11/14
--- OUTSIDE RECORDS SUMMARY | 2025-04-18 11:00 | XMS_ITS | Encounter Summary ---
Author Organization [facility] Address [address] [place] [address] Care Team Providers Care Family And Marriage Counsellor Name Role Phone Medardo Zapata MD Primary Care Provider [phone] Encounter Details Date Type Department Care Team (Late st Contact Info) Description 05/20/2002 Outpatient Historical [facility] 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
--- OUTSIDE RECORDS SUMMARY | 2025-04-18 11:00 | XMS_ITS | Encounter Summary ---
Author Organization [facility] Address [address] [place] [address] Care Team Providers Care Software Controls Engineer Name Role Phone Medardo Zapata MD Primary Care Provider [phone] Encounter Details Date Type Department Care Team (Late st Contact Info) Description 11/13/2001 Outpatient Historical [facility] [address] [facility] [address] [phone] Sourav Argueta MD NO ADDRESS ON FILE Social History Tobacco Use Types Packs/Day Years Used Date Smoking Tobacco: Never Assessed Sex and Gender Information Value Date Recorded Sex Assigned at Not on file 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
--- OUTSIDE RECORDS SUMMARY | 2025-04-18 11:00 | XMS_ITS | Encounter Summary ---
Author Organization [facility] Address [address] [place] [address] Care Team Providers Care Dial Printer Name Role Phone Medardo Zapata MD Primary Care Provider [phone] Encounter Details Date Type Department Care Team (Late st Contact Info) Description 08/10/2003 Outpatient Historical [facility] Pediatrics 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
--- OUTSIDE RECORDS SUMMARY | 2025-04-18 11:00 | XMS_ITS | Encounter Summary ---
Author Organization [facility] Address [address] [place] [address] Care Team Providers Care Travel Ot Name Role Phone Medardo Zapaat MD Primary Care Provider [phone] Encounter Details Date Type Department Care Team (Late st Contact Info) Description 01/23/2004 Outpatient Historical [facility] [address] [facility] [address] [phone] Sourav Argueta MD NO ADDRESS ON FILE Social History Tobacco Use Types Packs/Day Years Used Date Smoking Tobacco: Never Assessed Sex and Gender Information Value Date Recorded Sex Assigned at Not on file 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
== END 2025-04-18 10:24 | disposition home or self-care (01) ==
LOC: ANHCARD 10:24
PROVIDERS: PCP Family Medicine; Visit Provider Internal Medicine Cardiovascular Disease
DX: R07.9 Chest pain, unspecified (principal)
CPT/HCPCS: 93017